=== PATIENT | female | born 1985 | race Caucasian/White ===

== ENCOUNTER 2020-09-24 14:14 | Emergency (ER) | payer OTHER ==
[~2020-09-24] VITALS: Ht 170.2 cm; Wt 90.7 kg
[~2020-09-24 14:14] MED LIST: BACTRIM DS TAB1 EACH PO; CLEOCIN HCL150 MG PO; FLEXERIL PO; HYDROCHLOROTH12.5 MG PO; HYDROCHLOROTHIA25 M1 PO; HYDROCODONE-AP1 EAC6 PO; IBUPROFEN 800800 M1 PO; LISINOPRIL10 MG PO; MEDROLDOSEPACK PO; MOBIC7.5 M1 PO; NORCO 5-325 TA1 EACH PO; PREDNISONE 10 M10 M1 PO; PREDNISONE 20 M20 M1 PO; ROBAXIN 750 MG750 M1 PO; TESSALON PERLE100 MG PO; VENTOLIN HFA 1818 GM INH; ZANTAC 150MG T150 M1; ZANTAC 150MG T150 MG PO; ZOFRAN4 MG PO; ZPAK PO
[2020-09-24] MEDS ORDERED: PRILOSEC OTC20 MG PO (14:26)
[2020-09-24 15:18] VITALS: BP 161/100
== END 2020-09-24 15:19 | disposition home or self-care (01) ==
LOC: M.ERS 14:14
DX: Z20.828 Contact with and (suspected) exposure to other viral communicable diseases (principal); I10 Essential (primary) hypertension; K21.9 Gastro-esophageal reflux disease without esophagitis; F17.210 Nicotine dependence, cigarettes, uncomplicated; Z98.51 Tubal ligation status; Z90.49 Acquired absence of other specified parts of digestive tract; Z79.899 Other long term (current) drug therapy; Z88.0 Allergy status to penicillin; Z88.6 Allergy status to analgesic agent; Z88.8 Allergy status to other drugs, medicaments and biological substances

== ENCOUNTER 2021-03-26 18:04 | Inpatient (IN) | payer OTHER, MEDICAID ==
[~2021-03-26] VITALS: Ht 170.2 cm; Wt 85.3 kg
--- NOTE | ~2021-03-26 | OP ---
[address] [address] OPERATIVE REPORT Name: SULEIMAN THOMAS Room: [address] IN .R.#: [id number] Admission: 03/27/21 Attend Phys: Ana Maria Garcia MD Discharge: Date of : 81 Report #: [id number] THIS REPORT FOR: cc: FAM - Family physician unknown FAM - Family physician unknown Onel Kenny DPM ~ DOC #: [id number] Onel Kenny MD DATE OF SURGERY: 03/27/2021 PREOPERATIVE DIAGNOSIS: Left foot infection of the first and second digit nail bed. POSTOPERATIVE DIAGNOSIS: Left foot infection of the first and second digit nail bed. PROCEDURE: Debridement of the left first and second digits of the left foot, subcutaneous and excisional. ANESTHESIA: General with a local block consisting of 10 mL of 0.5% ropivacaine. TOURNIQUET: None. DESCRIPTION OF PROCEDURE: The patient was transferred to the operating room and placed on the operating table in supine position. The left lower extremity was prepped and draped in the usual sterile manner. Local block was given. Attention directed to the hallux where a rongeur was used to remove all overlying necrotic and eschar tissue. Immediately, I saw good granular beefy red tissue. There were no signs of infection or tunneling or undermining. It all looked excellent. The same finding was noted on the left second digit. Because of this finding, we decided not to do more debridement such as bone resection or partial digit amputation. The patient was dressed with Xeroform, a little bit of gel, very painful for her. We put a José Miguel on it and outer Coban wrap. The patient will have dressing changes twice a day starting later tonight, which will be with Mepitel and a José Miguel. Possibly some Neosporin ointment. The patient will follow up in our office in 1 week when [place] [address] OPERATIVE REPORT Name: SULEIMAN THOMAS Room: [address] IN M.R.#: [id number] Admission: 03/27/21 Attend Phys: Ana Maria Garcia MD Discharge: Date of : 81 Report #: [id number] will watch her for the next 2-4 weeks. It will probably take a good 4 weeks to heal. We still have to be concerned about the possible osteomyelitis given the findings of the MRI, but clinically, there were no signs of osteo or deep tissue undermining. MD NOEMY Gann/ERICKA/JANA By: [id number] Kenny DPM /nt
[~2021-03-26 18:04] MED LIST changes: +PRILOSEC OTC20 MG PO
[2021-03-26 18:25] VITALS: BP 156/98
[2021-03-26] MEDS ORDERED: WELLBUTRIN SR150 MG PO (18:30)
[2021-03-26] MEDS ORDERED: NORVASC5 MG PO (18:31)
[2021-03-26 19:16] LABS: ABSOLUTE EOSINOPHILS 0.2 thou/uL (0.0-0.7); ABSOLUTE LYMPHOCYTES 3.5 thou/uL (0.8-5.3); ABSOLUTE NEUTROPHILS 6.7 thou/uL (1.6-8.1); BASOPHILS 0.3 %; EOSINOPHILS 1.8 %; HEMATOCRIT 41.9 % (37.0-47.0); HEMOGLOBIN 14.1 gm/dL (12.0-15.0); LYMPHOCYTES 30.8 %; MCH 32.8 pg (26.0-34.0); MCHC 33.8 g/dL (28.0-37.0); MCV 97.1 fL (80.0-100.0); MONOCYTES 8.5 %; MPV 9.7 fl. (7.2-11.1); NUCLEATED RBCS 0 /100WBC; PLATELET COUNT* 224 thou/uL (150-400); POLYS 58.6 %; RBC 4.31 mil/uL (4.20-5.00); RDW-CV 14.1 % (10.5-14.5); WBC 11.4 thou/uL (4.0-11.0)
[2021-03-26 19:25] LABS: ANION GAP 10 mmol/L (7-16); BUN 18 mg/dL (7-18); CALCIUM 9.3 mg/dL (8.5-10.1); CHLORIDE 102 mmol/L (98-107); CO2 22 mmol/L (21-32); CREATININE 0.7 mg/dL (0.6-1.3); GLUCOSE 94 mg/dL (70-99); POTASSIUM 4.1 mmol/L (3.5-5.1); SODIUM 134 mmol/L (136-145)
[2021-03-26 19:30] LABS: ALBUMIN 3.7 g/dL (3.4-5.0); ALKALINE PHOSPHATASE 94 U/L (46-116); SGOT 12 U/L (15-37); SGPT 19 U/L (30-65); TOTAL BILIRUBIN < 0.1 mg/dL (<0.1-1.0); TOTAL PROTEIN 7.3 g/dL (6.4-8.2)
[2021-03-26 21:24] VITALS: BP 153/83
[2021-03-26 22:41] VITALS: BP 147/88
[2021-03-27 08:00] VITALS: BP 139/96
[2021-03-27 16:24] VITALS: BP 140/87
[2021-03-27 20:00] VITALS: BP 150/87
[2021-03-28 04:37] LABS: HEMATOCRIT 40.8 % (37.0-47.0); HEMOGLOBIN 13.6 gm/dL (12.0-15.0); MCH 32.4 pg (26.0-34.0); MCHC 33.3 g/dL (28.0-37.0); MCV 97.5 fL (80.0-100.0); RBC 4.18 mil/uL (4.20-5.00); RDW-CV 13.8 % (10.5-14.5); WBC 8.8 thou/uL (4.0-11.0)
[2021-03-28 04:44] LABS: CALCIUM 8.8 mg/dL (8.5-10.1); CREATININE 0.7 mg/dL (0.6-1.3); POTASSIUM 4.2 mmol/L (3.5-5.1)
[2021-03-28 08:27] VITALS: BP 119/72
[2021-03-28 16:00] VITALS: BP 110/59
[2021-03-28 20:00] VITALS: BP 130/77
[2021-03-28 23:52] VITALS: BP 130/77
[2021-03-29 04:52] LABS: HEMATOCRIT 37.7 % (37.0-47.0); HEMOGLOBIN 12.9 gm/dL (12.0-15.0); MCH 32.6 pg (26.0-34.0); MCHC 34.2 g/dL (28.0-37.0); MCV 95.5 fL (80.0-100.0); MPV 9.8 fl. (7.2-11.1); RBC 3.95 mil/uL (4.20-5.00); RDW-CV 14.2 % (10.5-14.5); WBC 8.5 thou/uL (4.0-11.0)
[2021-03-29 04:57] LABS: CALCIUM 8.4 mg/dL (8.5-10.1); CREATININE 0.8 mg/dL (0.6-1.3)
[2021-03-29 08:00] VITALS: BP 130/85
--- NOTE | 2021-03-29 13:43 | EKG ---
[place] [address] ELECTROCARDIOGRAM REPORT Name: THOMASSULEIMAN JEAN Room: [address] ADM IN .R.#: [id number] Admission: 03/27/21 Attend Phys: Ana Maria Garcia, Discharge: Date of : 81 Date of Service: 03/29/21 1108 Report #: [id number] THIS REPORT FOR: //name// [facility] Test Date: 2021-03-29 Test Time: 11:08:21 Pat Name: SULEIMAN THOMAS Department: Room: [address] Gender: F Crude Tester: SOLEDAD : 1985 Requested By: Ana Maria Garcia Order Number: [id number] Olga Lidia MD: Foster Funes Measurements Intervals [place] Rate: 70 P: 53 MI: 165 QRS: 18 QRSD: 91 T: 57 QT: 412 QTc: 445 Interpretive Statements Sinus rhythm Compared to ECG 08/27/2013 20:43:19 No significant changes Electronically Signed On 03-29-2021 13:42:49 CDT by Foster Funes [email or web address] <ELECTRONICALLY SIGNED> By: Foster Funes MD, [facility] 03/29/21 1342 1108 1108 Foster Funes MD, [facility] /EPI
[2021-03-29 18:00] VITALS: BP 130/87
[2021-03-29 21:00] VITALS: BP 133/77
[2021-03-30 08:00] VITALS: BP 125/63
[2021-03-30 15:55] VITALS: BP 104/48
[2021-03-30 21:00] VITALS: BP 131/77
[2021-03-31 07:40] VITALS: BP 130/80
[2021-03-31 11:01] LABS: HEMATOCRIT 40.6 % (37.0-47.0); HEMOGLOBIN 13.7 gm/dL (12.0-15.0); MCH 32.3 pg (26.0-34.0); MCHC 33.7 g/dL (28.0-37.0); MCV 95.7 fL (80.0-100.0); MPV 9.6 fl. (7.2-11.1); RBC 4.24 mil/uL (4.20-5.00); RDW-CV 14.2 % (10.5-14.5); WBC 11.7 thou/uL (4.0-11.0)
[2021-03-31 11:08] LABS: CALCIUM 8.8 mg/dL (8.5-10.1); CREATININE 0.7 mg/dL (0.6-1.3)
[2021-03-31 11:44] VITALS: BP 130/80
[2021-03-31 13:31] VITALS: BP 130/80
[2021-04-01] MEDS ORDERED: HYDROCODON-ACE1 EAC7 PO (13:28)
== END 2021-03-31 13:40 | disposition home health service (06) | DRG 464 ==
LOC: M.ERS 18:04 → M.TBA-ER 19:23 → M.ORTHSURG 19:23
PROVIDERS: Internal Medicine; Physician Assistant; ADMIT Internal Medicine; ATTEND Internal Medicine
PROC: 0JBR0ZZ Excision of Left Foot Subcutaneous Tissue and Fascia, Open Approach (ICD-10-PCS; principal; 2021-03-27)
PROC: 02HV33Z Insertion of Infusion Device into Superior Vena Cava, Percutaneous Approach (ICD-10-PCS; 2021-03-29)
DX: M86.8X7 Other osteomyelitis, ankle and foot (principal); L03.116 Cellulitis of left lower limb; I10 Essential (primary) hypertension; F32.9 Major depressive disorder, single episode, unspecified; Z20.822 Contact with and (suspected) exposure to COVID-19; K21.9 Gastro-esophageal reflux disease without esophagitis; Z88.6 Allergy status to analgesic agent; Z88.0 Allergy status to penicillin; Z88.8 Allergy status to other drugs, medicaments and biological substances; Z90.49 Acquired absence of other specified parts of digestive tract; Z79.899 Other long term (current) drug therapy

== ENCOUNTER 2021-09-04 19:34 | Emergency (ER) | payer OTHER, MEDICAID ==
[~2021-09-04] VITALS: Ht 172.7 cm; Wt 108.9 kg
[~2021-09-04 19:34] MED LIST changes: +HYDROCODON-ACE1 EAC7 PO; +NORVASC5 MG PO; +WELLBUTRIN SR150 MG PO
[2021-09-04 20:11] LABS: INFLUENZA A ANTIGEN Negative (Negative); INFLUENZA B ANTIGEN Negative (Negative)
[2021-09-04 20:34] VITALS: BP 145/64
== END 2021-09-04 20:34 | disposition home or self-care (01) ==
LOC: M.ERS 19:34
PROVIDERS: Physician Assistant
DX: J02.9 Acute pharyngitis, unspecified (principal); Z20.822 Contact with and (suspected) exposure to COVID-19; I10 Essential (primary) hypertension; K21.9 Gastro-esophageal reflux disease without esophagitis; F32.9 Major depressive disorder, single episode, unspecified; F17.210 Nicotine dependence, cigarettes, uncomplicated; Z90.49 Acquired absence of other specified parts of digestive tract; Z88.8 Allergy status to other drugs, medicaments and biological substances; Z88.5 Allergy status to narcotic agent; Z88.0 Allergy status to penicillin; Z88.6 Allergy status to analgesic agent